=== PATIENT | female | born 1970 | race American Indian/Alaskan Native ===

== ENCOUNTER 2016-06-14 08:35 | Emergency (ER) | payer SELFPAY ==
[2016-06-14] MEDS ORDERED: NACL 0.9% 1000 ML 1,000 ML IV ONE ×2 (17:14→19:14)
--- NOTE | 2016-06-14 17:20 | Emergency Department Report ---
HPI - General Chief Complaint: Headache Time Seen by Provider: 06/14/16 17:06 - HPI HPI: 46-year-old female presents today with a frontal head tightness and pressure 4 days. Denies headache or history of headaches. Denies head injury or trauma. Denies history of hypertension. But patient states her blood pressure has been high 4 days. Positive for one episode of similar symptoms but was not worked up. Denies numbness, weakness, paresthesias. Denies fever, chills, nausea, vomiting, dizziness, confusion, visual changes, chest pain, shortness of breath , abdominal pain. ED Past Medical Hx - Past Medical History Previous Medical History?: No - Surgical History Additional Surgical History: ectopic . tubal ligation - Social History Smoking Status: Never Smoker Substance Use Type: Alcohol - Medications Home Medications: Home Medications Medication Instructions Recorded Confirmed Last Taken Type Naproxen [Naprosyn] 500 mg PO BID #30 tablet 06/14/16 Unknown Rx amLODIPine [Norvasc] 5 mg PO DAILY #30 tab 06/14/16 Unknown Rx ED Review of Systems ROS: Stated complaint: HEADACHE Other details as noted in HPI Constitutional: denies: chills, fever, malaise Eyes: denies: eye pain ENT: denies: ear pain, throat pain, congestion Respiratory: denies: cough, shortness of breath, wheezing Cardiovascular: denies: chest pain, palpitations Endocrine: no symptoms reported Gastrointestinal: denies: abdominal pain, nausea, vomiting Skin: denies: rash Neurological: denies: headache, weakness, numbness, paresthesias Physical Exam - Physical Exam Vital Signs: Vital Signs 06/14/16 06/14/16 06/14/16 08:57 10:21 15:49 Temperature 98.2 F 98.1 F Pulse Rate 108 H 121 H 134 H Respiratory 16 18 17 Rate Blood Pressure 180/96 Blood Pressure 195/112 168/106 [Left] O2 Sat by Pulse 100 99 100 Oximetry 06/14/16 15:55 Temperature Pulse Rate 115 H Respiratory 16 Rate Blood Pressure Blood Pressure 161/99 [Left] O2 Sat by Pulse 100 Oximetry Physical Exam: GENERAL: The patient is well-developed and well-nourished. Patient is in NAD. HEAD: Normocephalic. Atraumatic. EYES: Extraocular motions are intact, PERRL. NOSE: Normal nasal mucosa with no nasal discharge. NECK: Full range of motion. No midline or paraspinal tenderness to palpation. CHEST/LUNGS: Clear to auscultation throughout. HEART/CARDIOVASCULAR: Regular rate and rhythm. No murmurs, rubs or gallops. ABDOMEN: Abdomen is soft, nontender. Bowel sounds normoactive. No guarding or rebound tenderness. EXTREMITIES: Peripheral pulses intact. Capillary refill less than 2 seconds. Neuro: Alert and oriented 3, normal gait, fluid speech, EOMs intact, normal facial sensation, strength exam 5/5 upper and lower extremities, GCS equals 15, finger to nose normal, negative Romberg test. ED Course Vital Signs 06/14/16 06/14/16 06/14/16 08:57 10:21 15:49 Temperature 98.2 F 98.1 F Pulse Rate 108 H 121 H 134 H Respiratory 16 18 17 Rate Blood Pressure 180/96 Blood Pressure 195/112 168/106 [Left] O2 Sat by Pulse 100 99 100 Oximetry 06/14/16 15:55 Temperature Pulse Rate 115 H Respiratory 16 Rate Blood Pressure Blood Pressure 161/99 [Left] O2 Sat by Pulse 100 Oximetry ED Medical Decision Making - Lab Data Result diagrams: 06/14/16 17:26 06/14/16 17:26 Vital Signs 06/14/16 06/14/16 06/14/16 08:57 10:21 15:49 Temperature 98.2 F 98.1 F Pulse Rate 108 H 121 H 134 H Respiratory 16 18 17 Rate Blood Pressure 180/96 Blood Pressure 195/112 168/106 [Left] O2 Sat by Pulse 100 99 100 Oximetry 06/14/16 06/14/16 06/14/16 15:55 17:51 19:17 Temperature Pulse Rate 115 H 104 H 125 H Respiratory 16 16 20 Rate Blood Pressure Blood Pressure 161/99 149/98 186/110 [Left] O2 Sat by Pulse 100 100 100 Oximetry 06/14/16 06/14/16 06/14/16 19:22 19:57 20:46 Temperature Pulse Rate 125 H 105 H 114 H Respiratory 20 Rate Blood Pressure 186/110 Blood Pressure 160/98 163/93 [Left] O2 Sat by Pulse 100 Oximetry 06/14/16 06/14/16 21:43 22:07 Temperature Pulse Rate 111 H 85 Respiratory Rate Blood Pressure Blood Pressure 154/105 170/94 [Left] O2 Sat by Pulse Oximetry Lab Results 06/14/16 06/14/16 Range/Units 17:26 17:26 WBC 11.7 H (4.5-11.0) K/mm3 RBC 5.69 H (3.65-5.03) M/mm3 Hgb 10.6 (10.1-14.3) gm/dl Hct 35.2 (30.3-42.9) % MCV 62 L (79-97) fl MCH 19 L (28-32) pg MCHC 30 (30-34) % RDW 20.7 H (13.2-15.2) % Plt Count 242 (140-440) K/mm3 Lymph % (Auto) 17.6 (13.4-35.0) % [place] % (Auto) 6.0 (0.0-7.3) % Eos % (Auto) 0.7 (0.0-4.3) % Baso % (Auto) 0.8 (0.0-1.8) % Lymph # 2.1 (1.2-5.4) K/mm3 [place] # 0.7 (0.0-0.8) K/mm3 Eos # 0.1 (0.0-0.4) K/mm3 Baso # 0.1 (0.0-0.1) K/mm3 Seg Neutrophils % 74.9 H (40.0-70.0) % Seg Neutrophils # 8.7 H (1.8-7.7) K/mm3 Sodium 136 L (137-145) mmol/L Potassium 4.3 (3.6-5.0) mmol/L Chloride 98.6 (98-107) mmol/L Carbon Dioxide 22 (22-30) mmol/L Anion Gap 20 mmol/L BUN 10 (7-17) mg/dL Creatinine 0.6 L (0.7-1.2) mg/dL Estimated GFR > 60 ml/min BUN/Creatinine Ratio 16.66 % Glucose 217 H (65-100) mg/dL Calcium 9.3 (8.4-10.2) mg/dL - Radiology Data Radiology results: report reviewed PROCEDURE: CT HEAD/BRAIN WO CON TECHNIQUE: Computerized tomography of the head was performed without contrast material. HISTORY: Elevated blood pressure, head pressure COMPARISON: No prior studies are available for comparison. FINDINGS: Brain: Brain density appears normal. No evidence of intracranial hemorrhage. No parenchymal hemorrhage, mass lesions or mass effect are seen. No abnormal extraxial fluid collects or masses are seen. Ventricles: Ventricles are normal size and are midline. Bone Windows: No evidence of skull fracture. Paranasal sinuses: There is moderate mucosal thickening in the left side of the sphenoid sinus. Air-fluid level is not visualized the right side is clear. There is nodular mucosal thickening in 1 of the anterior ethmoid air cells on the right. Visualized portions of the paranasal sinuses otherwise appear clear. Mastoid air cells: Clear IMPRESSION: Negative unenhanced CT of the brain. Moderate mucosal thickening left side of the sphenoid sinus as described. Minimal nodular mucosal thickening in the ethmoid air cells on the right. Visualized portions of the paranasal sinuses otherwise are clear. - Medical Decision Making Year old female presents today with frontal headache tightness and pressure 4 days with elevated blood pressure levels. Discussed lab results with Dr. Kee. Negative unenhanced CT of the brain. Patient was given IV fluids, clonidine, Toradol and Reglan for symptomatic relief. Explained to patient that she has asymptomatic hypertension and she needs to follow up with her primary care provider. Discussed with patient's that uncontrolled hypertension can lead to stroke, heart attack and even . Also informed patient that her blood glucose levels are elevated. Emphasized the importance of following up with primary care provider. Patient is in no acute distress at this time. She will be sent home on Norvasc and naproxen and is recommended to return to the emergency department if symptoms worsen. Critical care attestation.: If time is entered above; I have spent that time in minutes in the direct care of this critically ill patient, excluding procedure time. ED Disposition Clinical Impression: HTN (hypertension) Qualifiers: Hypertension type: essential hypertension Qualified Code(s): I10 - Essential ( primary) hypertension Head ache Qualifiers: Headache type: unspecified Headache chronicity pattern: acute headache Intractability: not intractable Qualified Code(s): R51 - Headache Disposition: DISCHARGED TO HOME OR SELFCARE Is pt being admited?: No Does the pt Need Aspirin: No Condition: Stable Instructions: Hypertension (ED), Diabetes Mellitus Type 2 in Adults (ED), Acute Headache (ED) Additional Instructions: Follow-up with primary care provider. Return to the emergency department if symptoms worsen. Prescriptions: Naproxen [Naprosyn] 500 mg PO BID #30 tablet amLODIPine [Norvasc] 5 mg PO DAILY #30 tab Referrals: PRIMARY CARE,MD [Primary Care Provider] - 3-5 Days [facility] [Outside] - 3-5 Days Forms: Work/School Release Form(ED), Accompanied Note Time of Disposition: 22:30
[2016-06-14 17:44] LABS: Eosinophils % (Auto) 0.7 % (0.0-4.3)
[2016-06-14 17:45] LABS: Hematocrit 35.2 % (30.3-42.9); Hemoglobin 10.6 gm/dl (10.1-14.3); Red Blood Count 5.69 M/mm3 (3.65-5.03); White Blood Count 11.7 K/mm3 (4.5-11.0)
[2016-06-14 17:46] LABS: Basophils % (Auto) 0.8 % (0.0-1.8); Mean Corpuscular HGB Conc 30 % (30-34); Mean Corpuscular Hemoglobin 19 pg (28-32); Mean Corpuscular Volume 62 fl (79-97); Platelet Count 242 K/mm3 (140-440); Red Cell Distribution Width 20.7 % (13.2-15.2)
[2016-06-14 17:56] LABS: BUN/Creatinine Ratio 16.66; Blood Urea Nitrogen 10 mg/dL (7-17); Calcium 9.3 mg/dL (8.4-10.2); Carbon Dioxide 22 mmol/L (22-30); Chloride 98.6 mmol/L (98-107); Glucose 217 mg/dL (65-100); Potassium 4.3 mmol/L (3.6-5.0); Sodium 136 mmol/L (137-145)
[2016-06-14 18:00] LABS: Anion Gap 20 mmol/L
[2016-06-14] MEDS ORDERED: CATAPRES PO ONE (19:14)
--- NOTE | 2016-06-14 19:18 | Cat Scan Report ---
FINAL REPORT PROCEDURE: CT HEAD/BRAIN WO CON TECHNIQUE: Computerized tomography of the head was performed without contrast material. HISTORY: Elevated blood pressure, head pressure COMPARISON: No prior studies are available for comparison. FINDINGS: Brain: Brain density appears normal. No evidence of intracranial hemorrhage. No parenchymal hemorrhage, mass lesions or mass effect are seen. No abnormal extraxial fluid collects or masses are seen. Ventricles: Ventricles are normal size and are midline. Bone Windows: No evidence of skull fracture. Paranasal sinuses: There is moderate mucosal thickening in the left side of the sphenoid sinus. Air-fluid level is not visualized the right side is clear. There is nodular mucosal thickening in 1 of the anterior ethmoid air cells on the right. Visualized portions of the paranasal sinuses otherwise appear clear. Mastoid air cells: Clear IMPRESSION: Negative unenhanced CT of the brain. Moderate mucosal thickening left side of the sphenoid sinus as described. Minimal nodular mucosal thickening in the ethmoid air cells on the right. Visualized portions of the paranasal sinuses otherwise are clear.
[2016-06-14] MEDS ORDERED: REGLAN PO ONE (20:46)
[2016-06-14 22:08] VITALS: BP 170/94
== END 2016-06-14 22:47 | disposition home or self-care (01) ==
LOC: ED 08:35
DX: I10 Essential (primary) hypertension (principal); R51 Headache; Z98.51 Tubal ligation status
CPT/HCPCS: 36415; 70450; 80048; 85025; 96360; 96361; 99284; J7030